=== PATIENT | female | born 1965 | race Caucasian/White ===

== ENCOUNTER 2020-01-26 12:15 | Emergency (ER) | payer MEDICAID ==
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
== END 2020-01-26 13:30 | disposition home or self-care (01) ==
LOC: JD.ED 12:15
DX: M54.5 Low back pain (principal); G89.29 Other chronic pain; F17.210 Nicotine dependence, cigarettes, uncomplicated; Z91.030 Bee allergy status; Z88.5 Allergy status to narcotic agent; Z88.8 Allergy status to other drugs, medicaments and biological substances; Z90.49 Acquired absence of other specified parts of digestive tract; Z90.710 Acquired absence of both cervix and uterus
CPT/HCPCS: 99283

== ENCOUNTER 2020-03-16 15:40 | Emergency (ER) | payer MEDICAID ==
[2020-03-16] MEDS ORDERED: Acetaminophen/oxyCODONE 325-5 MG Tab PO ONE (16:24)
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
== END 2020-03-16 17:00 | disposition home or self-care (01) ==
LOC: JD.ED 15:40
DX: Z76.0 Encounter for issue of repeat prescription (principal); M40.204 Unspecified kyphosis, thoracic region; F17.210 Nicotine dependence, cigarettes, uncomplicated; Z79.899 Other long term (current) drug therapy; Z91.030 Bee allergy status; Z88.8 Allergy status to other drugs, medicaments and biological substances; Z88.5 Allergy status to narcotic agent
CPT/HCPCS: 99281; A9270

== ENCOUNTER 2020-03-23 15:23 | Emergency (ER) | payer MEDICAID ==
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
== END 2020-03-23 16:05 | disposition home or self-care (01) ==
LOC: JD.ED 15:23
DX: R10.84 Generalized abdominal pain (principal); Z91.030 Bee allergy status; Z88.5 Allergy status to narcotic agent; Z88.8 Allergy status to other drugs, medicaments and biological substances; Z79.899 Other long term (current) drug therapy; Z72.0 Tobacco use
CPT/HCPCS: 99283

== ENCOUNTER 2020-03-26 09:28 | Emergency (ER) | payer MEDICAID ==
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
== END 2020-03-26 10:07 | disposition home or self-care (01) ==
LOC: JD.ED 09:28
DX: F19.239 Other psychoactive substance dependence with withdrawal, unspecified (principal); M54.5 Low back pain; R10.9 Unspecified abdominal pain; R19.7 Diarrhea, unspecified; R11.0 Nausea; Z72.0 Tobacco use; Z91.030 Bee allergy status; Z88.8 Allergy status to other drugs, medicaments and biological substances; Z88.5 Allergy status to narcotic agent
CPT/HCPCS: 99283

== ENCOUNTER 2020-05-16 18:46 | Emergency (ER) | payer MEDICAID ==
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
[2020-05-16 21:10] LABS: CORONAVIRUS COVID-19 NAA NEGATIVE (NEGATIVE)
[2020-05-16] MEDS ORDERED: cefTRIAXone 1 GM, Lidocaine 1% 2.1 ML IM ONE ×2 (21:31)
== END 2020-05-16 21:56 | disposition home or self-care (01) ==
LOC: JD.ED 18:46
DX: N39.0 Urinary tract infection, site not specified (principal); R31.9 Hematuria, unspecified; B96.20 Unspecified Escherichia coli [E. coli] as the cause of diseases classified elsewhere; Z72.0 Tobacco use; Z91.030 Bee allergy status; Z88.8 Allergy status to other drugs, medicaments and biological substances; Z88.5 Allergy status to narcotic agent; Z90.710 Acquired absence of both cervix and uterus; Z20.822 Contact with and (suspected) exposure to COVID-19
CPT/HCPCS: 0240U; 36415; 80053; 81001; 83735; 84443; 85025; 86140; 87086; 87088; 87186; 96372; 99284; J0696; 99283

== ENCOUNTER 2020-07-12 14:11 | Emergency (ER) | payer MEDICAID ==
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
== END 2020-07-12 15:04 | disposition home or self-care (01) ==
LOC: JD.ED 14:11
DX: F11.23 Opioid dependence with withdrawal (principal); Z91.030 Bee allergy status; Z88.5 Allergy status to narcotic agent; Z88.8 Allergy status to other drugs, medicaments and biological substances; Z72.0 Tobacco use
CPT/HCPCS: 99283

== ENCOUNTER 2020-10-05 11:37 | Emergency (ER) | payer MEDICAID ==
[2020-10-05] MEDS ORDERED: Ampicillin/Sulbactam Na 3 GM in Sodium Chloride 0.9% 100 ML IV ONE (12:07)
[2020-10-05] MEDS ORDERED: Acetaminophen/HYDROcodone 325-5 MG Tab PO ONE (12:12)
[2020-10-05] MEDS ORDERED: Diphtheria,Pertussis(Acell),Tetanus Vaccine 0.5 ML Syringe IM ONE (12:57)
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
== END 2020-10-05 13:33 | disposition home or self-care (01) ==
LOC: JD.ED 11:37
DX: S61.551A Open bite of right wrist, initial encounter (principal); Z91.030 Bee allergy status; Z88.6 Allergy status to analgesic agent; Z88.5 Allergy status to narcotic agent; Z88.8 Allergy status to other drugs, medicaments and biological substances; Z72.0 Tobacco use; Z23 Encounter for immunization; W55.01XA Bitten by cat, initial encounter
CPT/HCPCS: 90471; 90715; 96365; 99283; 99283-25; A9270-GY; J0295

== ENCOUNTER 2020-10-08 18:39 | Emergency (ER) | payer MEDICAID ==
[2020-10-08] MEDS ORDERED: cefTRIAXone 1 GM in Sodium Chloride 0.9% 100 ML IV ONE (19:01)
[2020-10-08] MEDS ORDERED: Sodium Chloride 0.9% 10 ML Syringe FLUSH PRN (19:01)
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
== END 2020-10-08 19:50 | disposition home or self-care (01) ==
LOC: JD.ED 18:39
DX: S61.551A Open bite of right wrist, initial encounter (principal); L08.9 Local infection of the skin and subcutaneous tissue, unspecified; Z88.6 Allergy status to analgesic agent; Z88.5 Allergy status to narcotic agent; Z72.0 Tobacco use; Z91.030 Bee allergy status; W55.01XA Bitten by cat, initial encounter
CPT/HCPCS: 96365; 99283; J0696

== ENCOUNTER 2020-10-12 15:38 | Emergency (ER) | payer MEDICAID ==
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
[2020-10-12] MEDS ORDERED: Ibuprofen 400 MG Tab PO ONE (17:22)
--- NOTE | 2020-10-12 19:00 | CR ---
Right wrist: 4 views of the right wrist were obtained. Comparison: No prior wrist study is available. Joint spaces are preserved. No acute fracture, dislocation or other bony abnormality is appreciated. No radiopaque soft tissue abnormality is seen. Impression: 1. Nothing acute is seen on right wrist exam. Diagnostic code #1
== END 2020-10-12 17:52 | disposition home or self-care (01) ==
LOC: JD.ED 15:38
DX: S61.551A Open bite of right wrist, initial encounter (principal); Z91.030 Bee allergy status; Z88.5 Allergy status to narcotic agent; Z88.8 Allergy status to other drugs, medicaments and biological substances; Z72.0 Tobacco use; W55.01XA Bitten by cat, initial encounter
CPT/HCPCS: 36415; 73110; 85025; 86140; 99283; A9270

== ENCOUNTER 2021-04-16 10:06 | Emergency (ER) | payer MEDICAID ==
[2021-04-16] MEDS ORDERED: Sodium Chloride 0.9% 1,000 ML IV STA (11:09)
[2021-04-16] MEDS ORDERED: Ondansetron 4 MG/2 ML SDV IVPUSH ONE (11:09)
[2021-04-16] MEDS ORDERED: Sodium Chloride 0.9% 10 ML Syringe FLUSH PRN (11:09)
== END 2021-04-16 14:20 | disposition home or self-care (01) ==
LOC: JD.ED 10:06
DX: R11.2 Nausea with vomiting, unspecified (principal); Z91.030 Bee allergy status; Z88.5 Allergy status to narcotic agent; Z88.8 Allergy status to other drugs, medicaments and biological substances; Z72.0 Tobacco use
CPT/HCPCS: 36415; 80053; 81001; 83690; 85025; 96374; 99284; 99284-25; J2405; J7030

== ENCOUNTER 2021-08-29 17:52 | Emergency (ER) | payer MEDICAID | END 2021-08-29 19:53 | disposition left against medical advice (07) | LOC: JD.ED 17:52 → SUPCPDRO 17:52 → JD.ED 19:53 | DX: M54.9 Dorsalgia, unspecified (principal); Z53.21 Procedure and treatment not carried out due to patient leaving prior to being seen by health care provider ==

== ENCOUNTER 2021-08-29 20:14 | Emergency (ER) | payer MEDICAID ==
[2021-08-29] MEDS ORDERED: Buprenorphine/Naloxone 8-2 MG Tab.SL SL ONE (21:42)
== END 2021-08-29 22:00 | disposition home or self-care (01) ==
LOC: JD.ED 20:14
DX: M54.50 Low back pain, unspecified (principal); G89.29 Other chronic pain; Z91.030 Bee allergy status; Z88.6 Allergy status to analgesic agent
CPT/HCPCS: 99283

== ENCOUNTER 2021-09-01 15:24 | Emergency (ER) | payer MEDICAID | END 2021-09-01 18:43 | disposition home or self-care (01) | LOC: JD.ED 15:24 | DX: G89.29 Other chronic pain (principal); M54.50 Low back pain, unspecified; F17.210 Nicotine dependence, cigarettes, uncomplicated; Z91.030 Bee allergy status; Z88.1 Allergy status to other antibiotic agents; Z88.6 Allergy status to analgesic agent; Z88.8 Allergy status to other drugs, medicaments and biological substances; Z90.710 Acquired absence of both cervix and uterus; W18.39XA Other fall on same level, initial encounter | CPT/HCPCS: 99283 ==

== ENCOUNTER 2021-12-08 16:01 | Emergency (ER) | payer OTHER, MEDICAID | END 2021-12-08 18:33 | disposition home or self-care (01) | LOC: JD.ED 16:01 | DX: S80.02XA Contusion of left knee, initial encounter (principal); Z91.030 Bee allergy status; Z88.0 Allergy status to penicillin; Z88.5 Allergy status to narcotic agent; Z88.8 Allergy status to other drugs, medicaments and biological substances; V19.9XXA Pedal cyclist (driver) (passenger) injured in unspecified traffic accident, initial encounter | CPT/HCPCS: 73562-26-LT; 73562-LT; 99283 ==

== ENCOUNTER → 2022-12-15 | Day surgery (SDC) | payer MEDICAID ==
[~2022-12-15] MED LIST: Acetaminophen 325 MG Tab PO SCH; Bupivacaine 0.5% 30 ML SDV ONE; Dexamethasone 4 MG/ML 5 ML MDV ONE; EPINEPHrine 1 MG/ML SDV ONE; Gabapentin 300 MG Cap PO SCH; Ibuprofen 600 MG Tab PO ONE; Lactated Ringers 1,000 ML IV SCH; Lidocaine 1% 30 ML SDV ONE; Lidocaine 2% 100 MG/5 ML Syringe ONE; Lidocaine 2% 11 ML Jelly Filled Syringe ONE; Midazolam 1 MG/ML 2 ML SDV ONE; Ondansetron 4 MG/2 ML SDV IVPUSH PRN; Ondansetron 4 MG/2 ML SDV ONE; Propofol 200 MG/20 ML SDV ONE; Sodium Chloride 0.9% 10 ML Syringe FLUSH PRN; Sodium Chloride 0.9% 10 ML Syringe FLUSH SCH; ceFAZolin 2 GM Vial ONE; fentaNYL 100 MCG/2 ML SDV IVPUSH PRN; fentaNYL 100 MCG/2 ML SDV ONE
[2022-12-15] MEDS: HYDROmorphone 0.5 MG/0.5 ML Syringe IVPUSH PRN ×2 (15:28→15:38)
== END | disposition home or self-care (01) ==
LOC: JD.SDS 12:04
PROVIDERS: ATTEND Surgery
DX: K43.9 Ventral hernia without obstruction or gangrene (principal); F41.9 Anxiety disorder, unspecified; F32.A Depression, unspecified; F17.210 Nicotine dependence, cigarettes, uncomplicated; Z79.899 Other long term (current) drug therapy; Z88.0 Allergy status to penicillin; Z88.8 Allergy status to other drugs, medicaments and biological substances; Z88.5 Allergy status to narcotic agent
CPT/HCPCS: 49591; A9270; J0171; J0690; J1100; J1170; J2250; J2405; J2704; J3010; J3490; J7120

== ENCOUNTER 2023-03-02 11:49 | Emergency (ER) | payer MEDICAID ==
[2023-03-02] MEDS ORDERED: Ibuprofen 800 MG Tab PO ONE (12:29)
[2023-03-02] MEDS ORDERED: Cephalexin 500 MG Cap PO ONE (14:16)
== END 2023-03-02 14:32 | disposition home or self-care (01) ==
LOC: JD.ED 11:49
DX: M25.562 Pain in left knee (principal); F17.210 Nicotine dependence, cigarettes, uncomplicated; Z91.030 Bee allergy status; Z88.5 Allergy status to narcotic agent; Z88.0 Allergy status to penicillin; Z88.8 Allergy status to other drugs, medicaments and biological substances; Z79.899 Other long term (current) drug therapy; Z90.710 Acquired absence of both cervix and uterus
CPT/HCPCS: 73562-26-LT; 73562-LT; 99283; A9270-GY

== ENCOUNTER 2024-08-04 17:59 | Emergency (ER) | payer MEDICAID | END 2024-08-04 19:21 | disposition home or self-care (01) | LOC: JD.ED 17:59 | DX: L85.3 Xerosis cutis (principal); F17.210 Nicotine dependence, cigarettes, uncomplicated; Z91.030 Bee allergy status; Z88.5 Allergy status to narcotic agent; Z88.0 Allergy status to penicillin; Z79.899 Other long term (current) drug therapy | CPT/HCPCS: 99283 ==

== ENCOUNTER 2024-09-08 15:41 | Emergency (ER) | payer MEDICAID ==
[2024-09-08] MEDS ORDERED: Sodium Chloride 0.9% 10 ML Syringe FLUSH PRN (16:35)
[2024-09-08 16:41] LABS: APPEARANCE,URINE SLT CLOUDY (Clear); GLUCOSE,URINE NEGATIVE (Negative); OCCULT BLOOD,URINE TRACE-INTACT (Negative)
[2024-09-08 17:11] LABS: BASOPHILS ABSOLUTE AUTO 0.0 K/mm3 (0.0-0.2); BASOPHILS PERCENT AUTO 0.4 % (0.0-1.0); EOSINOPHILS ABSOLUTE AUTO 0.2 K/mm3 (0.0-0.4); EOSINOPHILS PERCENT AUTO 2.3 % (0.0-6.0); IMMATURE GRAN ABSOLUTE AUTO 0.02 K/mm3 (0.00-0.05); IMMATURE GRAN PERCENT AUTO 0.2 % (0.0-0.4); LYMPHOCYTES ABSOLUTE AUTO 4.4 K/mm3 (1.0-4.8); LYMPHOCYTES PERCENT AUTO 44.0 % (24.0-44.0); MEAN PLATELET VOLUME 10.1 fl (9.4-12.3); MONOCYTES ABSOLUTE AUTO 0.6 K/mm3 (0.0-0.8); MONOCYTES PERCENT AUTO 6.3 % (0.0-8.0); NEUTROPHILS ABSOLUTE AUTO 4.6 K/mm3 (1.8-7.7); NEUTROPHILS PERCENT AUTO 46.8 % (41.0-71.0); NRBC ABSOLUTE 0.00 (0.00-0.02); NRBC PERCENT 0.0 % (0.0-0.2); PLATELET COUNT,PLT 234 K/mm3 (150-400); RED BLOOD CELL COUNT 5.35 M/mm3 (4.10-5.30); WHITE BLOOD CELL COUNT,WBC 9.90 K/mm3 (3.9-11.3)
[2024-09-08 17:38] LABS: A/G RATIO 1.0 (1-2); ALANINE AMINOTRANSFERASE,ALT 54.0 U/L (14-59); ASPARTATE AMNIOTRANSFERASE,AST 41.0 U/L (15-37); BILIRUBIN TOTAL 0.4 mg/dL (0.2-1.0); BLOOD UREA NITROGEN,BUN 9.0 mg/dL (7-18); CARBON DIOXIDE,CO2 33.0 mEq/L (21-32); CHLORIDE,CL 101.0 mEq/L (98-107); CREATININE 0.7 mg/dL (0.55-1.02); EST CRCL DRUG DOSING (CG) 66.91 mL/min; ESTIMATED GFR 101.0 mL/min (>60); GLUCOSE RANDOM 88.0 mg/dL (70-99); POTASSIUM,K 3.9 mEq/L (3.5-5.1); PROTEIN TOTAL,TP 8.0 g/dl (6.4-8.2); SODIUM,NA 139.0 mEq/L (136-145)
== END 2024-09-08 17:55 | disposition home or self-care (01) ==
LOC: JD.ED 15:41
DX: R33.9 Retention of urine, unspecified (principal); M54.50 Low back pain, unspecified; G89.29 Other chronic pain; Z91.030 Bee allergy status; Z88.0 Allergy status to penicillin; Z88.5 Allergy status to narcotic agent; Z79.899 Other long term (current) drug therapy
CPT/HCPCS: 36415; 80053; 81001; 85025; 99284

== ENCOUNTER 2024-12-20 20:08 | Emergency (ER) | payer MEDICAID ==
[2024-12-20] MEDS: Ketorolac 60 MG/2 ML SDV IM ONE (21:02)
== END 2024-12-20 22:35 | disposition home or self-care (01) ==
LOC: JD.ED 20:08
DX: M54.16 Radiculopathy, lumbar region (principal); I10 Essential (primary) hypertension; Z90.710 Acquired absence of both cervix and uterus; Z88.0 Allergy status to penicillin; Z88.5 Allergy status to narcotic agent; Z88.8 Allergy status to other drugs, medicaments and biological substances; Z91.030 Bee allergy status; Z79.899 Other long term (current) drug therapy
CPT/HCPCS: 72131; 99283; A9270